=== PATIENT | male | born 1985 | race Caucasian/White ===

== ENCOUNTER 2016-07-28 10:36 | Emergency (ER) | payer OTHER ==
--- NOTE | 2016-07-28 11:45 | RADIOLOGY REPORT (SQ) ---
EXAM DESCRIPTION: FINGER LEFT COMPLETED DATE/TIME: 07/28/2016 11:23 am REASON FOR STUDY: crush injury COMPARISON: None. NUMBER OF VIEWS: Three views. TECHNIQUE: AP, lateral, and oblique images acquired of the left second finger. LIMITATIONS: None. FINDINGS: MINERALIZATION: Normal. BONES: Acute transverse fracture across the distal tuft left 2nd (index) finger distal phalanx. Over lying disruption of the fingernail soft tissues. SOFT TISSUES: Disruption of the index finger nail bed. No radiopaque foreign body. OTHER: No other significant finding. IMPRESSION: Acute transverse fracture left 2nd finger distal phalanx tuft with overlying disruption of the fingernail bed COMMENT: SITE OF TRAUMA/COMPLAINT MARKED/STAMP COMPLETED: Yes TECHNICAL DOCUMENTATION: JOB ID: [id number] [employer]- All Rights Reserved
[2016-07-28] MEDS ORDERED: LIDOCAINE 1% INJ-PF (10 MG/ML) 30 ML SDV INJ ONE (11:46)
[2016-07-28] MEDS ORDERED: OXYCODONE-ACETAMINOPHEN 5-325 MG TABLET PO ONE (11:49)
--- NOTE | 2016-07-28 12:42 | ER Document Report ---
ED Hand/Wrist Injury - General Chief Complaint: Finger Injury Stated Complaint: FINGER INJURY Time Seen by Provider: 07/28/16 11:00 Notes: Patient is a 30-year-old male who presents emergency department complaining of trauma to the left index finger. Patient states that he got caught in a door. complaing pain, bleeding at the distal end of the left index finger with nail pain TRAVEL OUTSIDE OF THE [place] IN LAST 30 DAYS: No - Related Data Allergies/Adverse Reactions: Penicillins Allergy (Mild, Verified 07/28/16 10:39) Fruit Extracts [From Fruit & Vegetable Daily] Allergy (Verified 07/28/16 10:39) Lutein Extract [From Fruit & Vegetable Daily] Allergy (Verified 07/28/16 10:39) lycopene [From Fruit & Vegetable Daily] Allergy (Verified 07/28/16 10:39) Past Medical History - Social History Smoking Status: Current Some Day Smoker Family History: Reviewed & Not Pertinent Patient has suicidal ideation: No Patient has homicidal ideation: No Renal/ Medical History: Denies: Hx Peritoneal Dialysis Past Surgical History: Reports: Hx Orthopedic Surgery - left shoulder - Immunizations Immunizations up to date: Yes Hx Diphtheria, Pertussis, Tetanus Vaccination: Yes Review of Systems - Review of Systems Musculoskeletal: See HPI Skin: See HPI -: Yes All other systems reviewed and negative Physical Exam - Vital signs Vitals: Temp Pulse Resp BP Pulse Ox 98.4 F 102 H 14 148/83 H 99 07/28/16 10:39 07/28/16 10:39 07/28/16 10:39 07/28/16 10:39 07/28/16 10:39 - General General appearance: Appears well, Alert In distress: None - Cardiovascular Pulses: Normal: Radial Normal capillary refill: Yes - Extremities Forearm: Normal Wrist: Normal Hand: Tender, Deformity, Laceration, Nail injury, Swelling. No: Dislocation, Tendon deficit - Skin Skin Temperature: Warm Skin Moisture: Dry Skin Color: Normal Skin Turgor: Elastic Course - Re-evaluation Re-evalutation: 07/28/16 11:25 30-year-old female who presents with nail injury after a crush injury of the left index finger. X-ray reveals tuft fracture. Male reduced using hemostat at the bedside, laceration closed with 6-0 nylon suture. Patient wound irrigated with Betadine and hydrogen peroxide. Patient placed in finger splint and hand surgeon follow-up established with [facility] patient initiated on clindamycin and Cipro. To cover for prophylaxis of osteomyelitis given open fracture - Vital Signs Vital signs: Temp Pulse Resp BP Pulse Ox 98.3 F 84 20 143/86 H 97 07/28/16 14:48 07/28/16 14:48 07/28/16 14:48 07/28/16 14:48 07/28/16 14:48 - Diagnostic Test Radiology reviewed: Image reviewed, Reports reviewed Procedures - Immobilization Left Finger Pre-Proc Neuro Vasc Exam: Normal Immobilizer type: Finger splint (Static) Performed by: PCT Post-Proc Neuro Vasc Exam: Normal Alignment checked and good: Yes - Laceration/Wound Repair Left Finger Wound length (cm): 1.5 Wound's Depth, Shape: Nail-avulsed Laceration pre-procedure: Sterile PPE donned, Betadine prep applied, Sterile drapes applied Anesthetic type: 1% Lidocaine Volume Anesthetic (mLs): 8 Wound explored: Clean, No foreign body removed Wound Debrided: Minimal Wound Repaired With: Sutures Suture Size/Type: 6:0, Nylon Number of Sutures: 2 Post-procedure wound care: Sterile dressing applied Post-procedure NV exam normal: Yes Complications: No Discharge - Discharge Clinical Impression: Open fracture of tuft of distal phalanx of finger Condition: Good Disposition: HOME, SELF-CARE Instructions: Tuft Fracture of the Finger ([facility]), Laceration Care ([facility]), Soap Cleansing ([facility]), Splint Precautions ([facility]) Additional Instructions: You have an appointment with [facility] hand specialist on August 03 at 10: 30am with Dr. Nair. Address is [address] [place] [address] Please take your antibiotics as prescribed Prescriptions: Oxycodone HCl/Acetaminophen [Percocet 7.5-325 mg Tablet] 1 each PO Q6HP PRN #15 tablet PRN Reason: Ciprofloxacin HCl [Cipro 500 mg Tablet] 500 mg PO BID 7 Days Clindamycin HCl 300 mg PO QID 7 Days Ibuprofen [Motrin 800 mg Tablet] 800 mg PO Q8H PRN #30 tab PRN Reason: Forms: Elevated Blood Pressure Referrals: LORA TARIQ DO [Primary Care Provider] - Follow up as needed
[2016-07-28] MEDS ORDERED: CLINDAMYCIN HCL 150 MG CAPSULE PO ONE (14:12)
[2016-07-28] MEDS ORDERED: CIPROFLOXACIN HCL 500 MG TABLET PO ONE (14:12)
[2016-07-28 14:57] VITALS: BP 143/86
== END 2016-07-28 15:04 | disposition home or self-care (01) ==
LOC: ER 10:36
PROC: 0HQGXZZ Repair Left Hand Skin, External Approach (ICD-10-PCS; principal; 2016-07-28)
DX: S62.631B Displaced fracture of distal phalanx of left index finger, initial encounter for open fracture (principal); F17.200 Nicotine dependence, unspecified, uncomplicated; W23.0XXA Caught, crushed, jammed, or pinched between moving objects, initial encounter; Z88.0 Allergy status to penicillin
CPT/HCPCS: 99283; 73140; 12001; J3490